=== PATIENT | female | born 2000 | race Two or more races ===

== ENCOUNTER 2023-03-09 13:56 | Emergency (ER) | payer OTHER ==
[~2023-03-09] VITALS: Ht 157.5 cm; Wt 76.2 kg
[2023-03-09] MEDS ORDERED: KETO10TA2 PO (19:25)
[2023-03-09] MEDS ORDERED: PREDNISONE20 MG PO (19:25)
[2023-03-09] MEDS ORDERED: ARTIFICIALS TEA30 ML OP (19:25)
== END 2023-03-09 20:23 | disposition home or self-care (01) ==
LOC: ER 13:56
DX: R20.2 Paresthesia of skin (principal); G51.0 Bell's palsy; Z88.0 Allergy status to penicillin

== ENCOUNTER 2023-08-20 21:42 | Emergency (ER) | payer OTHER ==
[~2023-08-20] VITALS: Ht 162.6 cm; Wt 81.6 kg
[~2023-08-20 21:42] MED LIST: ARTIFICIALS TEA30 ML OP; KETO10TA2 PO; PREDNISONE20 MG PO
[2023-08-20] MEDS ORDERED: KETOROLAC TROMETHAMINE 30 MG VIAL IM STA (22:30)
== END 2023-08-20 22:52 | disposition home or self-care (01) ==
LOC: ER 21:42
DX: M54.2 Cervicalgia (principal); Z88.0 Allergy status to penicillin

== ENCOUNTER 2023-09-09 10:03 | Outpatient (CLI) | payer OTHER | END 2023-09-09 10:09 | disposition home or self-care (01) | LOC: SONOGRAMA 10:03 | DX: R22.1 Localized swelling, mass and lump, neck (principal) ==

== ENCOUNTER 2023-11-26 09:57 | Emergency (ER) | payer OTHER ==
[~2023-11-26] VITALS: Ht 157.5 cm; Wt 78.9 kg
== END 2023-11-26 11:20 | disposition left against medical advice (07) ==
LOC: ER 09:57
DX: Z53.21 Procedure and treatment not carried out due to patient leaving prior to being seen by health care provider (principal)

== ENCOUNTER 2024-06-27 10:44 | Emergency (ER) | payer OTHER ==
[~2024-06-27] VITALS: Ht 157.5 cm; Wt 72.6 kg
[2024-06-27] MEDS ORDERED: ZYRTEC10 M3 PO (15:40)
[2024-06-27] MEDS ORDERED: FLONASE ALLERG9.9 ML NASAL (15:40)
[2024-06-27] MEDS ORDERED: ZITHROMAX500 MG PO (15:40)
[2024-06-27] MEDS ORDERED: CETIRIZINE HCL 5 MG/5 ML ML PO ONE (15:45)
[2024-06-27] MEDS ORDERED: GUAIFEN/DEXTROMETHORPHAN/PE 10 ML BLIST.PACK PO ONE ×2 (15:45→15:56)
[2024-06-27] MEDS ORDERED: DEXAMETHASONE SODIUM PHOSPHATE 4 MG/ML VIAL IM ONE (15:45)
[2024-06-27] MEDS ORDERED: DEXAMETHASONE SODIUM PHOSPHATE 4 MG/ML VIAL ONE (15:52)
[2024-06-27] MEDS ORDERED: CETIRIZINE HCL 5MG/5ML BLIST.PACK PO ONE (15:52)
== END 2024-06-27 16:09 | disposition home or self-care (01) ==
LOC: ER 10:46
DX: J02.9 Acute pharyngitis, unspecified (principal); R09.82 Postnasal drip; Z88.0 Allergy status to penicillin
CPT/HCPCS: 96372; 99282; J1100